=== PATIENT | male | born 2000 | race Caucasian/White ===

== ENCOUNTER 2021-04-28 13:07 | Emergency (ER) | payer MEDICAID, SELFPAY ==
[2021-04-28 13:49] VITALS: BP 157/93; PULSE 97; RESP 16; TEMP 36.9; O2SAT 98; BMI 31.1
[2021-04-28 14:32] LABS: Glucose Urine UA Norm (Normal); Ketones Urine Negative (Negative); Protein Urine Neg (Negative); Specific Gravity, Urine 1.025 (1.005-1.030); Urine Appearance SL Hazy (CLEAR); pH Urine 5 (5-7)
[2021-04-28 14:33] LABS: Add Urine Microscopic? YES; Bilirubin Urine 1+ (Negative); Blood Urine 2+ (Negative); Leukocyte Esterase Urine Negative (Negative); Nitrate Urine Negative (Negative); Urobilinogen Urine 1 mg/dL (Negative)
[2021-04-28 14:37] LABS: Add Urine Culture? Yes; Bacteria Urine TRACE /hpf; Mucus Urine 1+ /hpf; Red Blood Cell Casts Urine RARE /lpf; Squamous Epithelial Cell Urine 0-4 /hpf (0-5); Urine Color Yellow (Yellow); WBC Urine 0-4 /hpf (0-5)
[2021-04-28 16:26] LABS: Basophils % 0.5 %; Eosinophils % 0.5 %; Hematocrit 49.8 % (42.0-52.0); Hemoglobin 17.4 g/dL (11.7-16.6); Lymphocytes # 1.1 10^3/uL (0.8-4.8); Lymphocytes % 15.9 %; Mean Corpuscular HGB Conc 34.9 g/dL (30.0-36.0); Mean Corpuscular Hemoglobin 29.5 pg (28.0-34.0); Mean Corpuscular Volume 84.4 fl (80-94); Monocytes # 0.4 10^3/uL (0.2-0.9); Monocytes % 6.3 %; Neutrophils # 5.05 10^3/uL (1.8-7.7); Neutrophils % 76.2 %; Nucleated Red Blood Cells % 0 %; Platelet Count 231 10^3/cmm (130-400); Red Cell Distribution Width 12.5 % (12.1-15.1); White Blood Count 6.6 10^3/uL (4.0-10.0)
[2021-04-28 16:50] VITALS: BP 138/82; PULSE 90; RESP 16; O2SAT 98
--- NOTE | 2021-04-28 16:58 | CTR_ITS ---
PROCEDURE INFORMATION: Exam: CT Abdomen And Pelvis Without Contrast Exam date and time: 04/28/2021 4:58 PM Age: 20 years old Clinical indication: Abdominal pain; Localized; Right; Prior surgery; Surgery type: Hernia; Additional info: Hematuria, right flank pain TECHNIQUE: Imaging protocol: Computed tomography of the abdomen and pelvis without contrast. Radiation optimization: All CT scans at this facility use at least one of these dose optimization techniques: automated exposure control; mA and/or kV adjustment per patient size (includes targeted exams where dose is matched to clinical indication); or iterative reconstruction. COMPARISON: No relevant prior studies available. RADIATION DOSE METRICS: Total DLP (mGy-cm): 1839.5 FINDINGS: Liver: Normal. No mass. Gallbladder and bile ducts: Normal. No calcified stones. No ductal dilation. Pancreas: Normal. No ductal dilation. Spleen: Normal. No splenomegaly. Adrenal glands: Normal. No mass. Kidneys and ureters: Normal. No hydronephrosis. Stomach and bowel: Mildly prominent fluid in the small bowel without dilation may reflect a mild enteritis in the appropriate clinical setting. Appendix: No evidence of appendicitis. Intraperitoneal space: Unremarkable. No free air. No significant fluid collection. Vasculature: Unremarkable. No abdominal aortic aneurysm. Lymph nodes: Unremarkable. No enlarged lymph nodes. Urinary bladder: Unremarkable as visualized. Reproductive: Unremarkable as visualized. Bones/joints: Unremarkable. No acute fracture. Soft tissues: Unremarkable. CT/CT kidney stone 10920 IMPRESSION: Mildly prominent fluid in the small bowel without dilation may reflect a mild enteritis in the appropriate clinical setting. Radiation Dose CTDIVOL = (mGy): DLP = 1839.5 (mGy-cm)
--- NOTE | 2021-04-28 16:59 | ED_ITS ---
HPI - Abdominal Pain General: Chief Complaint: Abdominal Pain Stated Complaint: BLOOD IN URINE/POSS KIDNEY STONES Time Seen by Provider: 04/28/21 16:58 History of Present Illness: HPI narrative: 20-year-old male comes in today with complaints of right side abdominal pain radiating down into his groin. Patient also reports some dysuria with some blood in his urine. Associated Symptoms: Reports hematuria Review of Systems General: Reports: 10 or more systems reviewed and unremarkable except in HPI a nd below : Reports: difficulty urinating and hematuria Physical Exam Const: COMMON NORMALS: no acute distress and patient oriented x3 GENERAL APPEARANCE: cooperative HENMT: COMMON NORMALS: normocephalic and TM's normal bilaterally HEAD & SCALP: normal to inspection and normocephalic TYMPANIC MEMBRANE: TM's normal bilaterally MOUTH: Normal oral and palatal mucosa present Eye: GENERAL EYE: appearance normal, both eyes and all related structures Neck/C-Spine: COMMON NORMALS: full ROM Lymph: LYMPHATIC: no lymphadenopathy noted Chest: COMMONS NORMALS: normal inspection of the chest Resp: COMMON NORMALS: normal respiratory effort EFFORT & INSPECTION: Yes able to speak in complete sentences Cardio: COMMON NORMALS: regular rate and regular rhythm RATE: regular rate RHYTHM: regular rhythm GI: COMMON NORMALS: Soft to palpation AUSCULTATION: Yes Hyperactive bowel sounds present PALPATION: Yes Soft to palpation : BLADDER/KIDNEY EXAM: Yes CVA tenderness on the right Back/Pelvis: COMMON NORMALS: thoracic and lumbar spine normal to inspection GENERAL BACK: Yes CVA tenderness Extremity: COMMON NORMALS: normal to inspection Neuro: COMMON NORMALS: patient oriented x3 and moves all extremities Psych: COMMON NORMALS: mental status grossly normal and cooperative Skin: COMMON NORMALS: no rashes or lesions noted GENERAL SKIN EXAM: no rashes or lesions noted Course Vital Signs: Vital signs: Vital Signs Temperature 98.4 F 04/28/21 13:49 Pulse Rate 92 04/28/21 17:44 Respiratory Rate 18 04/28/21 17:44 Blood Pressure 158/90 04/28/21 17:44 Pulse Oximetry 97 04/28/21 17:44 MDM - Abdominal Pain MDM Narrative: Medical decision making narrative: 20-year-old male patient comes in with right-sided abdominal discomfort radiating into the groin. Patient thinks he may have a kidney stone. Patient did note some blood in his urine which started yesterday. On exam patient has some right CVA tenderness. Abdomen soft with some right-sided tenderness. Bowel sounds are hyperactive. Vital signs are normal. Differential diagnosis includes but not limited to gastroenteritis, appendicitis, right renal calculi, urinary tract infection. Urinalysis had blood and white blood cells in it. CBC and CMP were unremarkable. CT of the abdomen pelvis noted no renal calculi but did have some fluid in the small intestine suggesting enteritis. Reviewed exam with patient with recommendations for treatment of urinary tract infection for the hematuria and enteritis. Patient be placed on Cipro and Zofran. Patient was also given 7 tablets of hydrocodone for his pain and discomfort, review of the record indicated no recent narcotic prescriptions. Lab Data: Labs: Lab Results 04/28/21 04/28/21 04/28/21 13:52 16:00 16:00 WBC 6.6 10^3/uL 10^3/ uL (4.0-10.0) RBC 5.90 10^6/uL H 10 ^6/uL (4.1-5.3) Hgb 17.4 g/dL H g/dL (11.7-16.6) Hct 49.8 % % (42.0-52.0) MCV 84.4 fl fl (80-94) MCH 29.5 pg pg (28.0-34.0) MCHC 34.9 g/dL g/dL (30.0-36.0) RDW 12.5 % % (12.1-15.1) Plt Count 231 10^3/cmm 10^3 /cmm (130-400) MPV 9.0 fL fL (7.4-10.4) Neut % (Auto) 76.2 % % Lymph % (Auto) 15.9 % % Irion % (Auto) 6.3 % % Eos % (Auto) 0.5 % % Baso % (Auto) 0.5 % % Neut # (Auto) 5.05 10^3/uL 10^3 /uL (1.8-7.7) Lymph # (Auto) 1.1 10^3/uL 10^3/ uL (0.8-4.8) Irion # (Auto) 0.4 10^3/uL 10^3/ uL (0.2-0.9) Eos # (Auto) 0.0 10^3/uL 10^3/ uL (0.0-0.8) Baso # (Auto) 0.0 10^3/uL 10^3/ uL (0.0-0.1) Nucleated RBC % (a uto) 0 % % Nucleated RBCs # 0.0 /100WBC /100W BC Sodium 138 mmol/L mmol/L (136-145) Potassium 4.2 mmol/L mmol/L (3.5-5.1) Chloride 103 mmol/L mmol/L (98-107) Carbon Dioxide 21 mmol/L L mmol/ L (22-29) Anion Gap 18.2 (5-19) BUN 16 mg/dL mg/dL (6-20) Creatinine 0.9 mg/dL mg/dL (0.7-1.2) GFR Calculation 105.5 mL/min mL/m in (90-130) Glucose 83 mg/dL mg/dL (65-115) Calculated Osmolal ity 286 mOsm/kg mOsm/ kg (285-295) Calcium 8.9 mg/dL mg/dL (8.5-10.5) Total Bilirubin 1.1 mg/dL mg/dL (0.15-1.2) AST 17 U/L U/L (0-40) ALT 24 U/L U/L (0-41) Alkaline Phosphata se 104 IU/L IU/L (40-130) Total Protein 7.0 g/dL g/dL (6.6-8.7) Albumin 4.9 g/dL g/dL (3.5-5.2) Globulin 2.1 g/dL g/dL (1.3-4.6) Urine Color Yellow (Yellow) Urine Appearance Sl hazy (CLEAR) Urine pH 5 (5-7) Ur Specific Gravit y 1.025 (1.005-1.030) Urine Protein Neg (Negative) Urine Glucose (UA) Norm (Normal) Urine Ketones Negative (Negative) Urine Blood 2+ H (Negative) Urine Nitrate Negative (Negative) Urine Bilirubin 1+ H (Negative) Urine Urobilinogen 1 mg/dL H mg/dL (Negative) Ur Leukocyte Eva ase Negative (Negative) Urine RBC 10-15 /hpf H /hpf (0-2) Urine WBC 0-4 /hpf H /hpf (0-5) Ur Squamous Epith Cells 0-4 /hpf H /hpf (0-5) Amorphous Sediment Not Reportable Urine Bacteria Trace /hpf /hpf (NONE) RBC Casts Rare /lpf /lpf Urine Mucus 1+ /hpf /hpf Discharge Plan Discharge Patient Disposition: Home Clinical Impression: Gastroenteritis Hematuria Qualifiers: Hematuria type: unspecified type Qualified Code(s): R31.9 - Hematuria, unspecified Condition: Stable Prescriptions: New ciprofloxacin HCl 500 mg tablet 500 mg PO BID Qty: 14 RF: 0 ondansetron 4 mg tablet,disintegrating 4 mg PO Q8H PRN (Reason: nausea and vomiting) Qty: 7 RF: 0 hydrocodone-acetaminophen 5-325 mg tablet 1 tab PO Q8H PRN (Reason: pain (scale score 7-10)) Qty: 7 RF: 0 Discharge Orders: Discharge ED (Routine); Ordered 04/28/21 Ordered By: Mal Sumner Discharge Diet: Advance as tolerated Discharge Activity: Increase activity as tolerated Patient Instructions: Gastroenteritis (ED), Opioid Safety Activity Restrictions/Additional Instructions: Home and rest. Drink plenty of fluids. Use medication as directed. Monitor for high fever greater than 100.4, blood in vomit or stool, or uncontrolled pain. Return to the ER for these concerns. Follow-up with primary care in 1 week for recheck of urine to make sure the blood is cleared out of it. Coding Level of Care Code ED Graphic Design Intern for Ozzy Molina
[2021-04-28 17:01] LABS: Alanine Aminotransferase 24 U/L (0-41); Albumin Level 4.9 g/dL (3.5-5.2); Alkaline Phosphatase 104 IU/L (40-130); Anion Gap 18.2 (5-19); Aspartate Amino Transferase 17 U/L (0-40); Blood Urea Nitrogen 16 mg/dL (6-20); Calcium 8.9 mg/dL (8.5-10.5); Carbon Dioxide 21 mmol/L (22-29); Chloride 103 mmol/L (98-107); Globulin 2.1 g/dL (1.3-4.6); Glomerular Filtration Rate 105.5 mL/min (90-130); Glucose 83 mg/dL (65-115); Osmolality Calculated 286 mOsm/kg (285-295); Potassium 4.2 mmol/L (3.5-5.1); Sodium 138 mmol/L (136-145); Total Bilirubin 1.1 mg/dL (0.15-1.2)
[2021-04-28] MEDS: ondansetron 4 MG Tablet PO (17:22)
[2021-04-28 17:24] VITALS: RESP 16
[2021-04-28] MEDS: morphine 4 mg/mL SDV 1 mL IM (17:24)
[2021-04-28 17:44] VITALS: BP 158/90; PULSE 92; RESP 18; O2SAT 97
[2021-04-28] MEDS: ciprofloxacin 500 mg Tablet PO (17:55)
== END 2021-04-28 18:07 | disposition home or self-care (01) ==
PROVIDERS: Family Medicine; Emergency Provider Nurse Practitioner Family
DX: K52.9 Noninfective gastroenteritis and colitis, unspecified (principal); R31.9 Hematuria, unspecified
CPT/HCPCS: 74176; 80053; 81001; 85025; 87086; 96372; 99283; J2270; Q0162

== ENCOUNTER 2021-11-30 05:52 | Emergency (ER) | payer MEDICAID, SELFPAY ==
[2021-11-30 05:58] VITALS: BP 141/91; PULSE 81; RESP 18; TEMP 37.1; O2SAT 99; BMI 29.7
[2021-11-30 06:04] VITALS: BP 147/77; PULSE 81; RESP 16; O2SAT 95
--- NOTE | 2021-11-30 06:18 | ED_ITS ---
HPI - General Adult General: Chief complaint: General Medical Stated complaint: swollen throat Time Seen by Provider: 11/30/21 06:14 History of Present Illness: 21-year-old presents to sore throat. States this started 3 days ago. States it hurts when he swallows but still able to tolerate p.o. intake. No difficulty tolerating secretions. No voice changes fevers or chills. No chest pain or shortness of breath. Review of Systems Narrative: - CONSTITUTIONAL: Denies weight loss, fever and chills. - HEENT: Denies changes in vision and hearing. - RESPIRATORY: Denies SOB and cough. - CV: Denies palpitations and CP. - GI: Denies abdominal pain, nausea, vomiting and diarrhea. - : Denies dysuria and urinary frequency. - MSK: Denies myalgia and joint pain. - SKIN: Denies rash and pruritus. - NEUROLOGICAL: Denies headache, weakness, numbness and syncope. - PSYCHIATRIC: Denies suicidal ideation Physical Exam Narrative: EXAM NARRATIVE: - GENERAL: Alert and oriented x 3. No acute distress. Well-nourished. - EYES: EOMI. Anicteric. - HENT: Atraumatic, no C-spine tenderness. Moist mucous membranes. No scleral icterus. No cervical lymphadenopathy. Uvula is midline, no stridor, no induration under the tongue around neck, no signs of Tong's angina. - LUNGS: Clear to auscultation bilaterally. No accessory muscle use. Equal lung sounds bilaterally. No respiratory distress. - CARDIOVASCULAR: Regular rate and rhythm. No murmur. No JVD. - ABDOMEN: Soft, non-tender and non-distended. Negative CVA tenderness bilaterally, no rebound or guarding, negative Schmitt sign. No palpable masses. - EXTREMITIES: No edema. Non-tender. - SKIN: No rashes or lesions. Warm. - NEUROLOGIC: No meningismus or focal neurological deficits. CN II-XII grossly intact. - PSYCHIATRIC: Cooperative. Appropriate mood and affect. Course Vital Signs: Vital signs: Vital Signs Temperature 98.8 F 11/30/21 05:58 Pulse Rate 81 11/30/21 06:04 Respiratory Rate 16 11/30/21 06:04 Blood Pressure 147/77 11/30/21 06:04 Pulse Oximetry 95 11/30/21 06:04 MDM - General Adult Medical Decision Making 21-year-old presents for sore throat. There is no sign of deeper tissue infection. Strep COVID and influenza swabs are negative. Improved with Tylenol. He is tolerating secretions and saturating well on room air. At this time I believe patient would be safe for discharge and outpatient follow-up. Return precautions provided. Plan was reviewed with the patient who expressed understanding. Questions answered. Patient will follow up with PCP. Patient discharged in stable condition. Lab Data Laboratory Results Influenza Type A Ag Negative (Negative) 11/30/21 06:35 Influenza Type B Ag Negative (Negative) 11/30/21 06:35 SARS-CoV-2 Ag (Rapid) Negative (Negative) 11/30/21 06:35 Group A Strep Rapid Negative (Negative) 11/30/21 06:10 Discharge Plan Discharge Condition: Stable Prescriptions: No Action ciprofloxacin HCl 500 mg tablet 500 mg PO BID Qty: 14 0RF ondansetron 4 mg tablet,disintegrating 4 mg PO Q8H PRN (Reason: nausea and vomiting) Qty: 7 0RF hydrocodone-acetaminophen 5-325 mg tablet 1 tab PO Q8H PRN (Reason: pain (scale score 7-10)) Qty: 7 0RF Coding Level of Care Code ED Pharmacy Operations Specialist for Ozzy Molina
[2021-11-30 06:29] LABS: Rapid Strep A Test Negative (Negative)
[2021-11-30] MEDS: acetaminophen 500 mg Tablet PO (06:32)
[2021-11-30 07:17] LABS: Influenza A by IFA Negative (Negative); Influenza B by IFA Negative (Negative); SARS Covid-2 Antigen Negative (Negative)
[2021-11-30 07:45] VITALS: BP 133/72; PULSE 82; RESP 14; O2SAT 96
== END 2021-11-30 07:47 | disposition home or self-care (01) ==
PROVIDERS: Emergency Medicine; Emergency Provider Emergency Medicine
DX: J02.9 Acute pharyngitis, unspecified (principal)
CPT/HCPCS: 87081; 87426; 87804; 87880; 99283